=== PATIENT | male | born 1955 | race Caucasian/White ===

== ENCOUNTER 2018-11-26 07:52 | Day surgery (SDC) | payer OTHER ==
[~2018-11-26] VITALS: Ht 182.9 cm; Wt 89.7 kg
[~2018-11-26 07:52] MED LIST: HYDACE5 PO; IBUP400; LISHYD1012 PO
--- NOTE | 2018-11-26 09:16 | NUR ---
11/26/18 0916 Lit Vick CALL LIGHT WITHIN REACH
== END 2018-11-26 10:10 | disposition home or self-care (01) ==
LOC: ORSCSDS 07:52
PROVIDERS: Internal Medicine Gastroenterology
PROC: 0DB68ZX Excision of Stomach, Via Natural or Artificial Opening Endoscopic, Diagnostic (ICD-10-PCS; principal; 2018-11-26 09:30)
PROC: 0D758ZZ Dilation of Esophagus, Via Natural or Artificial Opening Endoscopic (ICD-10-PCS; principal; 2018-11-26 09:30)
PROC: 0DB48ZX Excision of Esophagogastric Junction, Via Natural or Artificial Opening Endoscopic, Diagnostic (ICD-10-PCS; principal; 2018-11-26 09:30)
DX: K74.60 Unspecified cirrhosis of liver (principal); B19.20 Unspecified viral hepatitis C without hepatic coma; K76.6 Portal hypertension; K31.89 Other diseases of stomach and duodenum; Z13.810 Encounter for screening for upper gastrointestinal disorder; K22.70 Barrett's esophagus without dysplasia; K21.0 Gastro-esophageal reflux disease with esophagitis; K22.2 Esophageal obstruction; K44.9 Diaphragmatic hernia without obstruction or gangrene; Z87.891 Personal history of nicotine dependence; I10 Essential (primary) hypertension; Z79.899 Other long term (current) drug therapy
CPT/HCPCS: 88305; 88312; 88342; C1726; J2405; J2704; J7120

== ENCOUNTER 2019-09-25 16:59 | Observation (INO) | payer OTHER ==
[~2019-09-25] VITALS: Ht 182.9 cm; Wt 88.6 kg
[2019-09-25 17:40] LABS: BASOPHILS ABSOLUTE AUTO 0.01 K/mm3 (0.00-0.23); BASOPHILS PERCENT AUTO 0 % (0-2); EOSINOPHILS ABSOLUTE AUTO 0.01 K/mm3 (0.00-0.68); EOSINOPHILS PERCENT AUTO 0 % (0-6); Hematocrit 44.5 % (37.0-53.0); Hemoglobin 15.2 g/dL (13.5-17.5); IMMATURE GRAN ABSOLUTE AUTO 0.06 K/mm3 (0.00-0.10); IMMATURE GRAN PERCENT AUTO 1 % (0-1); LYMPHOCYTES ABSOLUTE AUTO 1.01 K/mm3 (0.84-5.20); LYMPHOCYTES PERCENT AUTO 12 % (21-46); MONOCYTES PERCENT AUTO 17 % (4-13); Mean Corpuscular HGB 31.9 pg (26.0-34.0); Mean Corpuscular HGB Conc 34.2 g/dL (31.5-36.5); Mean Corpuscular Volume 94 fL (80-100); Mean Platelet Volume 10.9 fL (9.1-12.4); NEUTROPHILS ABSOLUTE AUTO 5.92 K/mm3 (1.96-9.15); NEUTROPHILS PERCENT AUTO 71 % (41-73); Platelet Count 169 K/mm3 (150-400); RDW Coefficient Variation 12.1 % (11.7-14.2); RDW Standard Deviation 42.2 fL (35.1-46.3); Red Blood Cell Count 4.76 M/mm3 (4.30-5.90); White Blood Cell Count 8.41 K/mm3 (4.00-11.30)
[2019-09-25 20:03] LABS: Alanine Aminotransfer (ALT/SGP 24 U/L (12-78); Albumin/Globulin Ratio 0.9 (0.8-1.8); Alk Phos 56 U/L (50-136); Anion Gap 8 mmol/L (6-16); Aspartate Aminotrans (AST/SGOT 19 U/L (12-37); Bilirubin, Total 0.4 mg/dL (0.1-1.0); Blood Urea Nitrogen 14 mg/dL (8-24); Bun/Creatinine Ratio 13.7 (12.0-20.0); CO2, Blood 26 mmol/L (21-32); Calcium, Blood 9.5 mg/dL (8.5-10.1); Chloride, Blood 97 mmol/L (98-108); Creatinine, Blood 1.02 mg/dL (0.60-1.20); Globulin, Blood 4.7 g/dL (2.2-4.0); Glomerular Filtration Rate >60 (60-); Glucose, Blood 118 mg/dL (70-99); Potassium, Blood 3.7 mmol/L (3.5-5.5); Sodium, Blood 131 mmol/L (136-145); Total Protein, Blood 8.7 g/dL (6.4-8.2)
[2019-09-25 20:53] LABS: International Normalized Ratio 0.99; Prothrombin Time Results 10.6 Sec (9.7-11.5)
[2019-09-25] MEDS ORDERED: ATOR20 PO (20:59)
[2019-09-25] MEDS ORDERED: OMEP20ER PO (21:00)
[2019-09-25] MEDS ORDERED: POTASSIUM CHLO20 MEQ PO (21:00)
[2019-09-25] MEDS ORDERED: Prinivil10 MG PO (23:16)
[2019-09-25] MEDS ORDERED: HYDCHL25 PO (23:16)
--- NOTE | 2019-09-26 05:18 | NUR ---
SHIFT SUMMARY: PT ADMITTED TO MEDICAL UNIT TONIGHT FROM THE ER. TEMP UP TO 100.4 TONIGHT. TYL ADMINISTERED PER ORDERS. PT CONT W/REDNESS AND SWELLING OF R EAR, R EYE, R CHEEK, ACROSS NOSEBRIDGE AND FOREHEAD. REDNESS DOES NOT APPEAR TO HAVE EXPANDED OVERNIGHT, BUT SWELLING DOES APPEAR WORSE. PT LAYING ON L SIDE THROUGH THE NIGHT. IV ABT INFUSED PER ORDERS. PT AAOX3. INDEPENDENT IN ROOM. COMMUNICATES NEEDS. WILL CONT TO MONITOR.
[2019-09-26 05:21] LABS: Mean Corpuscular HGB 31.9 pg (26.0-34.0); Mean Corpuscular HGB Conc 34.1 g/dL (31.5-36.5); Mean Corpuscular Volume 93 fL (80-100); Mean Platelet Volume 10.6 fL (9.1-12.4); Platelet Count 165 K/mm3 (150-400); RDW Coefficient Variation 12.1 % (11.7-14.2); RDW Standard Deviation 41.9 fL (35.1-46.3); Red Blood Cell Count 4.39 M/mm3 (4.30-5.90); White Blood Cell Count 7.31 K/mm3 (4.00-11.30)
[2019-09-26 05:48] LABS: Anion Gap 8 mmol/L (6-16); Blood Urea Nitrogen 12 mg/dL (8-24); Bun/Creatinine Ratio 14.3 (12.0-20.0); CO2, Blood 25 mmol/L (21-32); Calcium, Blood 8.9 mg/dL (8.5-10.1); Chloride, Blood 100 mmol/L (98-108); Creatinine, Blood 0.84 mg/dL (0.60-1.20); Glomerular Filtration Rate >60 (60-); Glucose, Blood 112 mg/dL (70-99); Potassium, Blood 3.7 mmol/L (3.5-5.5); Sodium, Blood 133 mmol/L (136-145)
--- NOTE | 2019-09-26 15:29 | NUR ---
SUMMARY PT IS A/O X4, IND IN ROOM. PLEASANT/COOPERATIVE AFFECT. DX CELLULITIS, REDNESS MAINLY TO RIGHT SIDE OF FACE, NOSE & FOREHEAD, SWELLING TO R CHEEK UNDER EYE. HE STATE NO ACCOMPANING PAIN R/T CELLULITIS @ THIS TIME. HE HAD FEVER LAST NOC HOWEVER AFEBRILE SO FAR TODAY. WBC WNL. DR ROBERTS CHANGED IV ANTIBX TODAY TO VANCO Q12, STARTED HIM ON PROBIOTIC. DEAN OF STUDENTS ASSIST HIM TO SHOWER, BED LINENS CHANGED. HE IS UP IN CHAIR FOR MEALS, T/O MUCH OF DAY. VSS.
--- NOTE | 2019-09-27 05:11 | NUR ---
SHIFT SUMMARY: ORAL TEMP 100.6 AT HS, DOWN TO 98.6 AFTER TYLENOL. PT HAS REMAINED AFEB SINCE. AAOX4. COMMUNICATES NEEDS. CONT W/REDNESS AND SWELLING OF THE R EAR/EYE/NOSE/FOREHEAD. RED AREAS AND SWELLING OVERALL IMPROVED. PT STATES HE IS FEELING BETTER. IV ABT INFUSED PER ORDERS. NO ACUTE CHANGES OVERNIGHT. WILL CONT TO MONITOR.
--- NOTE | 2019-09-27 16:53 | NUR ---
SUMMARY FACIAL REDNESS w SWELLING R CHEEK, R EAR CONTINUES HOWEVER SOMEWHAT IMPROVED FROM YESTERDAY, DR ROBERTS STATE WILL CONTINUE IV ANTIBX VANCO FOR NOW & REASSESS IN AM. AFEBRILE TODAY, VSS. PT IS PLEASANT/COOPERATIVE. IND IN ROOM. STATE NO DIARRHEA, HE IS ON PROBIOTIC. HAND SEWER SHOES ASSIST HIM TO SHOWER TODAY. STATES NO PAIN @ CELLULITIS SITE.
--- NOTE | 2019-09-28 04:48 | NUR ---
SHIFT SUMMARY: VSS. AFEB. AAOX4. REDNESS/SWELLING ON R EAR/R CHEEK/NOSE/FOREHEAD ALL CONT TO IMPROVE. PT STATES HE IS GENERALLY FEELING MUCH BETTER. IV ABT INFUSED ORDERED. NO ACUTE CHANGES TONIGHT. WILL CONT TO MONITOR.
[2019-09-28 08:39] LABS: Vancomycin, Trough 13.9 ug/mL (5.0-10.0)
[2019-09-28] MEDS ORDERED: DOXY100 PO (10:20)
--- NOTE | 2019-09-28 13:17 | NUR ---
discharged, reviewed medications, diet, follow up appointments (he said he would make), stay, discharge instructions and what led to this hospital [facility], removed iv's when infusion was complete, assisted to pack all belongings and staff took him in a wc to the exit, cooperatve and cheerful to the last
== END 2019-09-28 11:40 | disposition home or self-care (01) ==
LOC: ER 16:59 → MEDS 17:00 → ENPENDDIS 09-28 10:00 → MEDS 09-28 11:40
PROVIDERS: Internal Medicine; Physician Assistant; ADMIT Hospitalist
DX: L03.211 Cellulitis of face (principal); E87.1 Hypo-osmolality and hyponatremia; E78.00 Pure hypercholesterolemia, unspecified; I10 Essential (primary) hypertension; E78.5 Hyperlipidemia, unspecified; K21.9 Gastro-esophageal reflux disease without esophagitis; Z79.899 Other long term (current) drug therapy
CPT/HCPCS: 36415; 70487; 80048; 80053; 80202; 83605; 85025; 85027; 85610; 85730; 87086; 93005; 93010; 96361; 96365-59; 99285-25; A9270; A9270-GY; J3370; J7030; J7050; Q9967

== ENCOUNTER 2022-12-26 07:12 | Day surgery (SDC) | payer MEDICARE, OTHER ==
[~2022-12-26 07:12] MED LIST changes: +AMLO10 PO; +ATOR20 PO; +Amoxicillin500 MG PO; +Bactrim Ds Tab1 EACH PO; +DOXY100 PO; +HYDCHL25 PO; +Keflex500 MG PO; +NAPR500; +OMEP20ER PO; +POTASSIUM CHLO20 MEQ PO; +Prinivil10 MG PO
== END 2022-12-26 23:07 | disposition home or self-care (01) ==
LOC: ORSCMMR 07:12 → ORD 10:00 → ORSCMMR 23:07
DX: Z86.010 Personal history of colon polyps (principal); K22.70 Barrett's esophagus without dysplasia; Z53.9 Procedure and treatment not carried out, unspecified reason
CPT/HCPCS: A9270; J2250; J2405; J2704

== ENCOUNTER → 2025-02-10 | Outpatient (CLI) | payer MEDICARE, OTHER ==
[2025-02-10 16:19] LABS: BASOPHILS ABSOLUTE AUTO 0.02 K/mm3 (0.00-0.23); BASOPHILS PERCENT AUTO 0 % (0-2); EOSINOPHILS ABSOLUTE AUTO 0.04 K/mm3 (0.00-0.68); EOSINOPHILS PERCENT AUTO 1 % (0-6); Hematocrit 44.5 % (37.0-53.0); Hemoglobin 15.1 g/dL (13.5-17.5); IMMATURE GRAN ABSOLUTE AUTO 0.02 K/mm3 (0.00-0.10); IMMATURE GRAN PERCENT AUTO 0 % (0-1); LYMPHOCYTES ABSOLUTE AUTO 1.76 K/mm3 (0.84-5.20); LYMPHOCYTES PERCENT AUTO 30 % (21-46); MONOCYTES ABSOLUTE AUTO 1.12 K/mm3 (0.16-1.47); MONOCYTES PERCENT AUTO 19 % (4-13); Mean Corpuscular HGB Conc 33.9 g/dL (31.5-36.5); Mean Corpuscular Volume 94 fL (80-100); NEUTROPHILS ABSOLUTE AUTO 2.96 K/mm3 (1.96-9.15); NEUTROPHILS PERCENT AUTO 50 % (41-73); NRBC ABSOLUTE 0.00 K/mm3 (0.00-0.02); NRBC Auto 0.0 /100 WBC (0.0-0.2); RDW Coefficient Variation 12.0 % (11.7-14.2); RDW Standard Deviation 41.6 fL (35.1-46.3)
[2025-02-10 16:32] LABS: Alanine Aminotransfer (ALT/SGP 22.0 U/L (12-78); Albumin, Blood 4.5 g/dL (3.4-5.0); Albumin/Globulin Ratio 1.4 (0.8-1.8); Anion Gap 11.0 mmol/L (3-11); Aspartate Aminotrans (AST/SGOT 22.0 U/L (12-37); Bilirubin, Total 0.5 mg/dL (0.1-1.0); Blood Urea Nitrogen 12.0 mg/dL (8-24); CO2, Blood 32.0 mmol/L (21-32); Calcium, Blood 9.7 mg/dL (8.5-10.1); Chloride, Blood 99.0 mmol/L (98-108); Creatinine, Blood 0.77 mg/dL (0.60-1.20); Globulin, Blood 3.2 g/dL (2.2-4.0); Glucose, Blood 104.0 mg/dL (70-99); Potassium, Blood 3.9 mmol/L (3.5-5.5); Sodium, Blood 138.0 mmol/L (136-145); Total Protein, Blood 7.7 g/dL (6.4-8.2)
[2025-02-10 16:43] LABS: Platelet Count 125 K/mm3 (150-400)
== END ==
LOC: LAB SHORT 16:15 → LAB 16:15
PROVIDERS: Chiropractor
DX: R10.9 Unspecified abdominal pain (principal)
CPT/HCPCS: 80053; 85025

== ENCOUNTER 2025-04-14 11:08 | Emergency (ER) | payer MEDICARE, OTHER ==
[~2025-04-14] VITALS: Ht 185.4 cm; Wt 95.2 kg
[2025-04-14 11:40] LABS: Source, Urine Clean Catch
[2025-04-14 11:44] LABS: Bilirubin, Urine Neg (Neg); Color, Urine Yellow (P-Yellow); Glucose Qualitative, Urine Neg (Neg); Ketones, Urine Neg (Neg); Leukocyte Esterase, Urine Neg (Neg); Protein, Urine 1+ (Neg); Specific Gravity, Urine 1.020 (1.003-1.022); Urobilinogen, Urine NORM (Normal)
[2025-04-14 11:44] LABS: BASOPHILS ABSOLUTE AUTO 0.01 K/mm3 (0.00-0.23); BASOPHILS PERCENT AUTO 0 % (0-2); EOSINOPHILS ABSOLUTE AUTO 0.02 K/mm3 (0.00-0.68); EOSINOPHILS PERCENT AUTO 0 % (0-6); Hematocrit 43.8 % (37.0-53.0); Hemoglobin 14.7 g/dL (13.5-17.5); IMMATURE GRAN ABSOLUTE AUTO 0.02 K/mm3 (0.00-0.10); IMMATURE GRAN PERCENT AUTO 0 % (0-1); LYMPHOCYTES ABSOLUTE AUTO 1.26 K/mm3 (0.84-5.20); LYMPHOCYTES PERCENT AUTO 26 % (21-46); MONOCYTES ABSOLUTE AUTO 0.81 K/mm3 (0.16-1.47); MONOCYTES PERCENT AUTO 16 % (4-13); Mean Corpuscular HGB Conc 33.6 g/dL (31.5-36.5); Mean Corpuscular Volume 94 fL (80-100); NEUTROPHILS ABSOLUTE AUTO 2.82 K/mm3 (1.96-9.15); NEUTROPHILS PERCENT AUTO 57 % (41-73); NRBC ABSOLUTE 0.00 K/mm3 (0.00-0.02); NRBC Auto 0.0 /100 WBC (0.0-0.2); Platelet Count 127 K/mm3 (150-400); RDW Coefficient Variation 11.8 % (11.7-14.2); RDW Standard Deviation 40.8 fL (35.1-46.3)
[2025-04-14 11:59] LABS: Red Blood Cells, Urine 0-2 /hpf (0-2); White Blood Cells, Urine 0-2 /hpf (0-5)
[2025-04-14 12:07] LABS: Alanine Aminotransfer (ALT/SGP 25.0 U/L (12-78); Albumin, Blood 4.3 g/dL (3.4-5.0); Albumin/Globulin Ratio 1.3 (0.8-1.8); Anion Gap 6.0 mmol/L (3-11); Aspartate Aminotrans (AST/SGOT 23.0 U/L (12-37); Bilirubin, Total 0.7 mg/dL (0.1-1.0); Blood Urea Nitrogen 11.0 mg/dL (8-24); CO2, Blood 30.0 mmol/L (21-32); Calcium, Blood 9.5 mg/dL (8.5-10.1); Chloride, Blood 104.0 mmol/L (98-108); Creatinine, Blood 0.73 mg/dL (0.60-1.20); Globulin, Blood 3.4 g/dL (2.2-4.0); Glucose, Blood 110.0 mg/dL (70-99); Potassium, Blood 3.5 mmol/L (3.5-5.5); Sodium, Blood 136.0 mmol/L (136-145); Total Protein, Blood 7.7 g/dL (6.4-8.2)
[2025-04-14 18:20] VITALS: BP 132/75
== END 2025-04-14 18:22 | disposition home or self-care (01) ==
LOC: ER 11:08
PROVIDERS: Physician Assistant
DX: K52.9 Noninfective gastroenteritis and colitis, unspecified (principal); K40.20 Bilateral inguinal hernia, without obstruction or gangrene, not specified as recurrent; I10 Essential (primary) hypertension; E78.5 Hyperlipidemia, unspecified; K21.9 Gastro-esophageal reflux disease without esophagitis
CPT/HCPCS: 71045; 74177; 76870; 80053; 81001; 83690; 85025; 87086; 87147; 93005; 93010; 99284-25; Q9967